=== PATIENT | male | born 1995 | race Caucasian/White ===

== ENCOUNTER 2016-11-08 02:31 | Emergency (ER) | payer OTHER ==
[~2016-11-08] VITALS: Ht 177.8 cm; Wt 85.3 kg
[2016-11-08 03:14] LABS: HEMATOCRIT 48.5 % (39.2-51.8); HEMOGLOBIN 16.1 g/dL (13.7-18.0); WHITE BLOOD COUNT 10.1 x10^3/uL (3.4-10)
[2016-11-08 03:21] LABS: BLOOD UREA NITROGEN 8 mg/dL (7-18)
[2016-11-08 05:36] VITALS: BP 109/49
== END 2016-11-08 06:42 | disposition home or self-care (01) ==
LOC: ED 06:32
DX: F10.220 Alcohol dependence with intoxication, uncomplicated (principal); S00.81XA Abrasion of other part of head, initial encounter; S80.211A Abrasion, right knee, initial encounter; S30.811A Abrasion of abdominal wall, initial encounter; X58.XXXA Exposure to other specified factors, initial encounter; Y93.89 Activity, other specified; Y92.89 Other specified places as the place of occurrence of the external cause; Y99.8 Other external cause status
CPT/HCPCS: 36415; 80048; 80307; 85025; 99284

== ENCOUNTER 2017-02-01 07:33 | Inpatient (IN) | payer SELFPAY ==
[~2017-02-01] VITALS: Ht 175.3 cm; Wt 90.4 kg
[2017-02-01] MEDS ORDERED: MULT-257 PO (07:50)
[2017-02-01] MEDS ORDERED: SODIUM CHLORIDE 0.9% 1,000ML IVBOLUS ONE (08:00)
[2017-02-01] MEDS ORDERED: ONDANSETRON 2MG/ML, 2ML IVPush ONE (08:00)
[2017-02-01] MEDS ORDERED: PANTOPRAZOLE 40 MG IV IVPush ONE (08:00)
[2017-02-01] MEDS ORDERED: SODIUM CHLORIDE FLUSH 10ML SYR IVF ONE (08:00)
[2017-02-01] MEDS ORDERED: FAMOTIDINE 20 MG/2 ML IVPush ONE (08:00)
[2017-02-01] MEDS ORDERED: PANTOPRAZOLE 40 MG IV ONE (08:09)
[2017-02-01] MEDS ORDERED: ONDANSETRON 2MG/ML, 2ML ONE (08:09)
[2017-02-01] MEDS ORDERED: FAMOTIDINE 20 MG/2 ML ONE (08:09)
[2017-02-01 08:10] LABS: HEMATOCRIT 27.5 % (39.2-51.8); HEMOGLOBIN 9.5 g/dL (13.7-18.0); WHITE BLOOD COUNT 9.4 x10^3/uL (3.4-10)
[2017-02-01 08:22] LABS: ASPARTATE AMINO TRANSFERASE 12 U/L (15-37); BLOOD UREA NITROGEN 36 mg/dL (7-18)
[2017-02-01] MEDS ORDERED: LORazepam 2 MG/ML, 1ML IVPush PRN (11:00)
[2017-02-01] MEDS ORDERED: HALOPERIDOL 5 MG/ML IM PRN (11:00)
[2017-02-01] MEDS: NICOTINE 21 MG/24 HR PATCH.TD24 TD SCH (11:00)
[2017-02-01] MEDS ORDERED: ONDANSETRON 2MG/ML, 2ML IVPush PRN (11:00)
[2017-02-01] MEDS ORDERED: morphine SULFATE 10 MG/ML, 1ML IVPush PRN (11:00)
[2017-02-01] MEDS ORDERED: hydrALAzine 20 MG/ML, 1ML IVPush PRN (11:00)
[2017-02-01] MEDS: SODIUM CHLORIDE 0.9% 1,000 ML IV SCH ×2 (11:31→19:18)
[2017-02-01] MEDS: PANTOPRAZOLE 80 MG in SODIUM CHLORIDE 0.9% 100 ML IV SCH ×2 (11:31→21:25)
[2017-02-01] MEDS ORDERED: PROPOFOL 10 MG/ML, 20ML ONE ×2 (12:45→13:15)
[2017-02-01 14:26] VITALS: BP 137/79
[2017-02-01] MEDS ORDERED: FLU VACC QS2017-18 (36MOS+) UP/PF 0.5 ML IM-VACC ONE (19:00)
[2017-02-01] MEDS ORDERED: PNEUMOCOCCAL 23 VACCINE IM-VACC ONE (19:00)
[2017-02-01 19:10] VITALS: BP 110/67
[2017-02-02] VITALS (12 sets, daily range): BP systolic 99–139; BP diastolic 60–84
[2017-02-02] MEDS: SODIUM CHLORIDE 0.9% 1,000 ML IV SCH (03:17)
[2017-02-02 06:00] LABS: BLOOD UREA NITROGEN 18 mg/dL (7-18)
[2017-02-02 06:03] LABS: ASPARTATE AMINO TRANSFERASE 12 U/L (15-37)
[2017-02-02] MEDS: PANTOPRAZOLE 80 MG in SODIUM CHLORIDE 0.9% 100 ML IV SCH (06:21)
[2017-02-02 07:11] LABS: WHITE BLOOD COUNT 7.1 x10^3/uL (3.4-10)
[2017-02-02 07:12] LABS: HEMATOCRIT 19.6 % (39.2-51.8); HEMOGLOBIN 6.7 g/dL (13.7-18.0)
[2017-02-02] MEDS: OMEPRAZOLE 20 MG CAPSULE.DR PO SCH ×2 (09:11→20:19)
[2017-02-02] MEDS ORDERED: PNEUMOCOCCAL 23 VACCINE IM-VACC ONE (12:30)
[2017-02-02] MEDS ORDERED: FLU VACC QS2017-18 (36MOS+) UP/PF 0.5 ML IM-VACC ONE (12:30)
[2017-02-02] MEDS: NICOTINE 21 MG/24 HR PATCH.TD24 TD SCH (12:48)
[2017-02-02 18:13] LABS: HEMATOCRIT 26.8 % (39.2-51.8); HEMOGLOBIN 9.1 g/dL (13.7-18.0)
[2017-02-03 03:28] VITALS: BP 118/70
[2017-02-03 05:39] LABS: HEMATOCRIT 23.5 % (39.2-51.8); HEMOGLOBIN 8.1 g/dL (13.7-18.0)
[2017-02-03 06:00] LABS: ASPARTATE AMINO TRANSFERASE 16 U/L (15-37); BLOOD UREA NITROGEN 8 mg/dL (7-18)
[2017-02-03 06:40] VITALS: BP 120/73
[2017-02-03] MEDS ORDERED: OMEP-110 PO (08:45)
[2017-02-03] MEDS ORDERED: NICO-487 TD (08:45)
[2017-02-03] MEDS ORDERED: ALPR0.25 PO (08:45)
[2017-02-03] MEDS: OMEPRAZOLE 20 MG CAPSULE.DR PO SCH (09:22)
[2017-02-03] MEDS: NICOTINE 21 MG/24 HR PATCH.TD24 TD SCH (12:07)
[2017-02-03 12:15] VITALS: BP 120/74
== END 2017-02-03 15:13 | disposition home or self-care (01) | DRG 380 ==
LOC: ED 08:06 → SUATTDRO 10:30 → EDIP 10:43 → 4WST 14:25
PROVIDERS: ADMIT Internal Medicine; ATTEND Internal Medicine
PROC: 0W3P8ZZ Control Bleeding in Gastrointestinal Tract, Via Natural or Artificial Opening Endoscopic (ICD-10-PCS; principal; 2017-02-01 13:00)
PROC: 30233N1 Transfusion of Nonautologous Red Blood Cells into Peripheral Vein, Percutaneous Approach (ICD-10-PCS; 2017-02-02)
DX: K22.11 Ulcer of esophagus with bleeding (principal); E43 Unspecified severe protein-calorie malnutrition; K29.71 Gastritis, unspecified, with bleeding; K26.9 Duodenal ulcer, unspecified as acute or chronic, without hemorrhage or perforation; D62 Acute posthemorrhagic anemia; Y90.0 Blood alcohol level of less than 20 mg/100 ml; F10.229 Alcohol dependence with intoxication, unspecified; R00.0 Tachycardia, unspecified; Z87.19 Personal history of other diseases of the digestive system; Z79.899 Other long term (current) drug therapy
CPT/HCPCS: 36415; 80053; 83690; 83735; 84100; 85014; 85018; 85025; 85610; 86850; 86900; 86923; 93005; 96361; 96374; 96375; 99152; J2405; C9113; J2060; J7030; P9016; S0028